=== PATIENT | female | born 1950 | race Caucasian/White ===

== ENCOUNTER 2017-01-01 13:42 | Emergency (ER) | payer MEDICAID ==
[~2017-01-01] VITALS: Ht 157.5 cm; Wt 97.1 kg
[~2017-01-01 13:42] MED LIST: ASPIRIN 81MG TA81 MG PO; BACTRIM DS 8001 TAB PO; FLEXERIL10 MG PO; IBU800 MG PO; K-DUR 2020 MEQ PO; LOMOTIL 2.5MG.2.5 MG PO; LOTENSIN HCT 201 TA1 PO; MELOXICAM7.5 MG PO; PROBIOTIC1 EAC3 PO
--- NOTE | 2017-01-01 14:14 | Emergency Room Report ---
History of Present Illness Time Seen by MD Wild Presenting Problem in Triage Pt arrived:Walked Presenting Problem:PT C/O RT FOOT PAIN X1 MONTH THAT HAS PROGRESSIVELY GOTTEN WORSE Onset of symptoms date/time:/ or onset unknown for:MEDICAL HX UNKNOWN Treatment Prior to Arrival: [employer] Provided by: Sepsis Risk Assessment: Temp: 98.4 B/P: 178/98 MAP: 124 Pulse: 72 Resp: 20 Recent fever? N Clinical Suspician of Infection? N Mental Status: 1 - Regular (Normal Baseline) Sepsis Risk:Low Sepsis Risk Have you (or family members/close friends) recently traveled outside the [place]? N If Yes, where/when: Have you had exposure to infectious disease within the past month? N TB? Other? Specify: Pain to right arch gradually and progressively worse over past month; no numbness or calf pain. Some relief with Tylenol. ALLERGIES Coded Allergies: Penicillins (I-HIVES 10/13/15) sulfamethoxazole (From BACTRIM) (DIARRHEA 10/13/15) trimethoprim (From BACTRIM) (DIARRHEA 10/13/15) Home Medications Reported Medications Potassium Chloride (K-Dur) 20 MEQ PO DAILY #30 Benazepril Hydrochloride/Hyd (Lotensin Hct 20 Mg-25 Mg) 1 TAB PO DAILY Meloxicam (Meloxicam 7.5MG) 7.5 MG PO DAILYP PRN ANTIINFLAMMATORY Diphenoxylate W/ Atropine (Diphenoxylate-Atrop 2.5-0.025) 1 TAB PO QID ASPIRIN (Aspirin) 81 MG PO DAILY Lactobacillus Combo No.11 (Probiotic) 1 EACH PO DAILY History Medical History General CAD? No Angina: No NH: No Hypertension? Yes Hyperlipidemia? No CHF? No DVT? No PE? No COPD? No Asthma? No Anemia? No GERD? Yes Gastric ulcers? No GI Bleed? No Hernia? No Thyroid Problems? No Hypothyroidism? No CVA? No Seizures? No Diabetes? No Renal Insuffiency? No End Stage Renal Disease? No UTI? No Stones? No BPH? No GB Disease: No Nephritic Syndrome? No Asplenia? No Hepatitis? No Sickle Cell Disease? No Arthritis? Yes Migraines? No Cataracts? No Glaucoma? No MRSA? No HIV? No TB? No Anxiety? No Depression? No Cancer? No Immunization Hx DT/Tetanus 10/09/2013 Surgical Hx Previous Surgery?Y TONSILS GALLBLADDER HYSTERECTOMY GURU KNEE REPLACEMENTS COCHLEAR IMPLANT R EAR right hand Social History Smoking Hx Smoker: Former Smoker Tobacco: Yes Type Cigarettes Packs/day < 1 Pack Alcohol Alcohol: No Review of Systems All Other Systems Reviewed and Negative Musculoskeletal see HPI Physical Exam Vital Signs Vital Signs Date Time Temp Pulse Resp B/P Pulse O2 O2 Flow FiO2 Ox Delivery Rate 01/01 1530 72 20 169/89 98 01/01 1444 72 20 172/89 98 01/01 1348 98.4 72 20 178/98 98 General Appearance normal appearance, WD/WN, no apparent distress Eye Exam - bilateral eye normal exam, bilateral eye PERRL Respiratory Status No: respiratory distress. Cardiovascular no peripheral edema, normal peripheral pulses Peripheral Pulses Pulses normal Yes Extremities Pain diffusely over right plantar fasciae; no pain over toes; toes well perfused, pink, warm; DP and PT pulses full; FROM, fully sensate. No erythema. Strength 5 Lower Ext (L), 5 Lower Ext (R) Neurologic alert, normal exam, no motor/sensory deficits, oriented x 3 Glascow Coma Scale Glascow Coma Scale Response Value EYE response: 4 Spontaneously 4 MOTOR response: 6 OBEYS 6 VERBAL response: 5 Oriented & Converses 5 Total 15 Skin intact, normal color Medical Decision Making LABS/Meds/Orders Pt receiving controlled substance in ED? No Results/Orders Orders Procedure Date/time Status FOOT-RT-3 VIEWS 01/01 1353 Active XRAY/CT/US XRAY/CT/US XRAY foot XR interpretation by reviewed by me Xray Results normal/NAD, no fracture seen Departure Departure Time of Disposition 1541 Disposition DC Home or Self Care(routine) Clinical Impression Primary Impression: Plantar fasciitis of right foot Condition STABLE Referrals Tavares Saavedra MD (Family) THIERNO CHAPPELL DPM Patient Instructions DI for Plantar Fasciitis Additional Instructions Ibuprofen as needed, see pediatric intensive physician of choice (referral to Dr. Chappell, call first) and also see Dr. Saavedra for follow up. Discharge Counseling Counseled pt/family regarding diagnosis, test results, medications/RX, home care, follow up needs ED Critical Care Critical Care No at 1541
--- NOTE | 2017-01-01 15:59 | RADIOLOGY REPORT PS360 ---
FOOT-RT-3 VIEWS COMPARISON: Right foot 03/09/2012 HISTORY: Chronic right foot pain TECHNIQUE: AP lateral and oblique views FINDINGS: The tarsal bones metatarsals and phalanges appear intact with no fracture seen. The plantar arch is normal. There are small spurs of the calcaneus at the insertion of the plantar tendon and Achilles tendon. There are no soft tissue foreign bodies. IMPRESSION: Grossly negative right foot
[2017-01-01 16:05] VITALS: BP 148/85
== END 2017-01-01 16:05 | disposition home or self-care (01) ==
LOC: ER 13:42
DX: M72.2 Plantar fascial fibromatosis (principal); I10 Essential (primary) hypertension; Z79.899 Other long term (current) drug therapy; Z87.891 Personal history of nicotine dependence; Z79.1 Long term (current) use of non-steroidal anti-inflammatories (NSAID); Z79.82 Long term (current) use of aspirin